=== PATIENT | male | born 1980 | race Two or more races ===

== ENCOUNTER 2022-10-24 13:00 | Inpatient (IN) | payer MEDICAID, OTHER ==
[~2022-10-24] VITALS: Ht 180.3 cm; Wt 209.0 kg
[2022-10-24 13:30] LABS: Basophils # (auto) 0.1 10 ^3/uL (0-0.2); Basophils % (auto) 0.5 % (0.0-2.0); Eosinophils # (auto) 0.5 10 ^3/uL (0-0.8); Hematocrit 33.4 % (41.0-53.0); Mean Corpuscular Volume 79.8 fL (80.0-100.0); Monocytes # (auto) 0.7 10 ^3/uL (0-1.3); Nucleated Red Blood Cells % 0.1 %
[2022-10-24 13:32] LABS: Eosinophils % (auto) 3.1 % (0.0-7.0); Hemoglobin 9.9 g/dL (13.5-17.5); Lymphocytes # (auto) 1.6 10 ^3/uL (0.4-5.4); Lymphocytes % (auto) 9.8 % (10.0-50.0); Mean Corpuscular Hemoglobin 23.7 pg (28.0-32.0); Mean Corpuscular Hgb Conc. 29.6 g/dL (32.0-36.0); Monocytes % (auto) 4.3 % (0.0-12.0); Neutrophils # (auto) 13.2 10 ^3/uL (1.6-8.6); Neutrophils % (auto) 82.3 % (37.0-80.0); Red Blood Cells 4.18 10^6/uL (4.5-5.90); Red Cell Distribution Width 18.6 % (11.8-14.3)
[2022-10-24 13:46] LABS: INR 0.99 (0.9-1.15); Partial Thromboplastin Time 26.2 sec (24.6-33.4)
[2022-10-24 14:31] LABS: BUN/Creatinine Ratio 14.8; Potassium 3.5 mmol/L (3.5-5.1)
[2022-10-24 14:33] LABS: Albumin 3.3 g/dL (3.4-5.0); Bilirubin, Total 0.4 mg/dL (0.2-1.0); Calcium 8.7 mg/dL (8.5-10.1); Total Protein 7.7 g/dL (6.4-8.2)
[2022-10-24] MEDS ORDERED: ASPirin 325 MG TAB PO ONE (16:45)
[2022-10-24] MEDS ORDERED: SODIUM CHLORIDE 0.9% 1,000 ML IV ONE (17:15)
[2022-10-24] MEDS ORDERED: cefTRIAXone 1GM/50ML D5W 50 ML IV ONE (17:15)
[2022-10-24] MEDS ORDERED: AZITHROMYCIN 500MG/ 250ML 250 ML IV ONE (17:15)
[2022-10-24] MEDS ORDERED: ACETAMINOPHEN 325 MG TAB PO ONE (17:15)
[2022-10-24] MEDS ORDERED: DexAMETHasone SOD PHOS 10MG/1ML VIAL INJ IV ONE (17:30)
[2022-10-24] MEDS ORDERED: LORazepam 0.5 MG TAB PO PRN (19:30)
[2022-10-24] MEDS ORDERED: ACETAMINOPHEN 325 MG TAB PO PRN (19:30)
[2022-10-24] MEDS ORDERED: ZOLPIDEM TARTRATE 5 MG TAB PO PRN (19:30)
[2022-10-24] MEDS ORDERED: ONDANSETRON HCL 4 MG/2 ML VIAL IV PRN (19:30)
[2022-10-24] MEDS ORDERED: NITROGLYCERIN 0.4 MG SL TAB SL PRN (19:30)
[2022-10-24] MEDS ORDERED: MORPHINE SULFATE 4 MG/ML SYR/VIAL IV PRN (19:30)
[2022-10-24] MEDS ORDERED: IODIXANOL 320MG/ML 100ML BTL IV ONE (20:15)
[2022-10-24] MEDS: SODIUM CHLORIDE 0.9% 1,000 ML IV SCH (20:23)
[2022-10-24] MEDS ORDERED: DEXTROSE (50%) 50ML SYRG IV PRN (21:15)
[2022-10-24 21:27] LABS: Urine Bacteria NONE SEEN /hpf (None Seen); Urine Blood 2+ /uL (Negative); Urine Specific Gravity 1.011 (1.001-1.035); Urine WBC 79 /hpf (0 - 3)
[2022-10-24] MEDS: ENOXAPARIN SOD 150 MG/1 ML SYRINGE SC SCH (22:06)
[2022-10-24] MEDS: METOPROLOL TARTRATE 25 MG TAB PO SCH (22:06)
[2022-10-24] MEDS: ATORVASTATIN 20 MG TAB PO SCH (22:16)
[2022-10-25] MEDS: InsuLIN REG 1unit/0.01ml Soln (100units/ml) SC SCH ×6 (00:48→20:00)
[2022-10-25] MEDS: ACCU-CHEK COMFORT CURVE STRIP VI SCH ×6 (04:02→20:25)
[2022-10-25 06:24] LABS: Basophils # (auto) 0 10 ^3/uL (0-0.2); Basophils % (auto) 0.1 % (0.0-2.0); Eosinophils # (auto) 0 10 ^3/uL (0-0.8); Hematocrit 30.3 % (41.0-53.0); Hemoglobin 9.4 g/dL (13.5-17.5); Lymphocytes # (auto) 0.5 10 ^3/uL (0.4-5.4); Lymphocytes % (auto) 3.6 % (10.0-50.0); Mean Corpuscular Hemoglobin 23.5 pg (28.0-32.0); Mean Corpuscular Hgb Conc. 30.9 g/dL (32.0-36.0); Mean Corpuscular Volume 75.9 fL (80.0-100.0); Monocytes # (auto) 0.2 10 ^3/uL (0-1.3); Monocytes % (auto) 1.5 % (0.0-12.0); Neutrophils # (auto) 13.3 10 ^3/uL (1.6-8.6); Neutrophils % (auto) 94.8 % (37.0-80.0); Red Blood Cells 3.99 10^6/uL (4.5-5.90); Red Cell Distribution Width 18.4 % (11.8-14.3)
[2022-10-25 06:41] LABS: BUN/Creatinine Ratio 14.7; Calcium 8.8 mg/dL (8.5-10.1); Potassium 3.7 mmol/L (3.5-5.1)
[2022-10-25] MEDS: SODIUM CHLORIDE 0.9% 1,000 ML IV SCH ×2 (08:50→22:20)
[2022-10-25] MEDS ORDERED: cefTRIAXone 1GM/50ML D5W 50 ML IV SCH (10:00)
[2022-10-25] MEDS: LISINOPRIL 5 MG TAB PO SCH (10:32)
[2022-10-25] MEDS: CLOPIDOGREL BISULFATE 75 MG TAB PO SCH (10:33)
[2022-10-25] MEDS: ASPirin 81 mg TAB PO SCH (10:34)
[2022-10-25] MEDS: METOPROLOL TARTRATE 25 MG TAB PO SCH ×2 (10:34→21:38)
[2022-10-25] MEDS: DOCUSATE SOD 100 MG CAP PO SCH (10:34)
[2022-10-25] MEDS: AZITHROMYCIN 500MG/ 250ML 250 ML IV SCH ×2 (10:35→11:43)
[2022-10-25] MEDS: ENOXAPARIN SOD 150 MG/1 ML SYRINGE SC SCH ×2 (10:35→21:38)
[2022-10-25 11:20] LABS: Cholesterol 134 mg/dL (< 200); HDL Cholesterol 40 mg/dL (40-59); LDL Cholesterol 84 mg/dL (< 100); Triglycerides 106 mg/dL (< 150)
[2022-10-25] MEDS: cefTRIAXone 1GM/50ML D5W 50 ML IV SCH (15:00)
[2022-10-25] MEDS ORDERED: OXYMETAZOLINE HCL 0.05 % NASAL SPRAY 15ML ONE (17:44)
[2022-10-25] MEDS ORDERED: OXYMETAZOLINE HCL 0.05 % NASAL SPRAY 15ML EACHNOSTRI ONE (17:45)
[2022-10-25] MEDS: ATORVASTATIN 20 MG TAB PO SCH (21:37)
[2022-10-25 23:58] VITALS: BP 151/92
[2022-10-26] MEDS: ACCU-CHEK COMFORT CURVE STRIP VI SCH ×7 (00:24→23:10)
[2022-10-26 02:38] VITALS: BP 151/76
[2022-10-26] MEDS: InsuLIN REG 1unit/0.01ml Soln (100units/ml) SC SCH ×7 (04:00→23:10)
[2022-10-26 04:46] VITALS: BP 139/83
[2022-10-26 06:18] LABS: INR 1.07 (0.9-1.15)
[2022-10-26 06:20] LABS: Basophils # (auto) 0.1 10 ^3/uL (0-0.2); Basophils % (auto) 0.5 % (0.0-2.0); Eosinophils # (auto) 0.1 10 ^3/uL (0-0.8); Eosinophils % (auto) 0.9 % (0.0-7.0); Hematocrit 28.6 % (41.0-53.0); Hemoglobin 8.9 g/dL (13.5-17.5); Lymphocytes # (auto) 1.8 10 ^3/uL (0.4-5.4); Lymphocytes % (auto) 12.3 % (10.0-50.0); Mean Corpuscular Hemoglobin 23.6 pg (28.0-32.0); Mean Corpuscular Volume 75.9 fL (80.0-100.0); Monocytes % (auto) 6.9 % (0.0-12.0); Neutrophils # (auto) 11.9 10 ^3/uL (1.6-8.6); Neutrophils % (auto) 79.4 % (37.0-80.0); Nucleated Red Blood Cells % 0.1 %; Red Blood Cells 3.77 10^6/uL (4.5-5.90); Red Cell Distribution Width 18.4 % (11.8-14.3); White Blood Cell 14.9 10^3/uL (4.4-10.8)
[2022-10-26 06:23] LABS: BUN/Creatinine Ratio 16.5; Calcium 8.6 mg/dL (8.5-10.1); Potassium 3.6 mmol/L (3.5-5.1)
[2022-10-26] MEDS ORDERED: GLIP5TAB12 PO (07:41)
[2022-10-26] MEDS ORDERED: METO-289 PO (07:41)
[2022-10-26] MEDS ORDERED: ALLO300T2 PO (07:41)
[2022-10-26] MEDS: AZITHROMYCIN 500MG/ 250ML 250 ML IV SCH (08:35)
[2022-10-26] MEDS: cefTRIAXone 1GM/50ML D5W 50 ML IV SCH (08:36)
[2022-10-26] MEDS: LISINOPRIL 5 MG TAB PO SCH (08:36)
[2022-10-26] MEDS: METOPROLOL TARTRATE 25 MG TAB PO SCH ×2 (08:36→21:28)
[2022-10-26] MEDS: DOCUSATE SOD 100 MG CAP PO SCH (08:37)
[2022-10-26] MEDS: ENOXAPARIN SOD 150 MG/1 ML SYRINGE SC SCH ×2 (08:37→21:28)
[2022-10-26 09:00] VITALS: BP 121/82
[2022-10-26] MEDS: CLOPIDOGREL BISULFATE 75 MG TAB PO SCH (10:00)
[2022-10-26] MEDS: ASPirin 81 mg TAB PO SCH (10:00)
[2022-10-26] MEDS: SODIUM CHLORIDE 0.9% 1,000 ML IV SCH ×2 (11:30→23:53)
[2022-10-26 13:00] VITALS: BP 128/84
[2022-10-26 17:00] VITALS: BP 131/85
[2022-10-26] MEDS: ATORVASTATIN 20 MG TAB PO SCH (21:28)
[2022-10-26 22:00] VITALS: BP 137/81
[2022-10-27] MEDS: ACCU-CHEK COMFORT CURVE STRIP VI SCH ×5 (03:50→20:17)
[2022-10-27] MEDS: InsuLIN REG 1unit/0.01ml Soln (100units/ml) SC SCH ×5 (03:50→20:00)
[2022-10-27 05:00] VITALS: BP 137/78
[2022-10-27] MEDS: LISINOPRIL 5 MG TAB PO SCH (08:44)
[2022-10-27] MEDS: METOPROLOL TARTRATE 25 MG TAB PO SCH ×2 (08:45→22:16)
[2022-10-27] MEDS: AZITHROMYCIN 500MG/ 250ML 250 ML IV SCH (08:45)
[2022-10-27] MEDS: cefTRIAXone 1GM/50ML D5W 50 ML IV SCH (08:45)
[2022-10-27] MEDS: ENOXAPARIN SOD 150 MG/1 ML SYRINGE SC SCH ×2 (08:46→22:15)
[2022-10-27 09:06] VITALS: BP 171/89
[2022-10-27] MEDS: ASPirin 81 mg TAB PO SCH (10:00)
[2022-10-27] MEDS: CLOPIDOGREL BISULFATE 75 MG TAB PO SCH (10:00)
[2022-10-27] MEDS: DOCUSATE SOD 100 MG CAP PO SCH (10:00)
[2022-10-27 13:00] VITALS: BP 131/20
[2022-10-27] MEDS ORDERED: APIX5TAB4 PO (14:47)
[2022-10-27] MEDS ORDERED: AMOX-277 PO (14:51)
[2022-10-27 17:00] VITALS: BP 137/69
[2022-10-27 22:00] VITALS: BP 147/93
[2022-10-27] MEDS: ATORVASTATIN 20 MG TAB PO SCH (22:16)
[2022-10-28] MEDS: ACCU-CHEK COMFORT CURVE STRIP VI SCH ×4 (00:12→12:53)
[2022-10-28] MEDS: InsuLIN REG 1unit/0.01ml Soln (100units/ml) SC SCH ×4 (04:00→12:53)
[2022-10-28 05:00] VITALS: BP 142/85
[2022-10-28 08:30] VITALS: BP 151/82
[2022-10-28] MEDS: LISINOPRIL 5 MG TAB PO SCH (09:32)
[2022-10-28] MEDS: ENOXAPARIN SOD 150 MG/1 ML SYRINGE SC SCH (09:33)
[2022-10-28] MEDS: METOPROLOL TARTRATE 25 MG TAB PO SCH (09:33)
[2022-10-28 12:40] VITALS: BP 151/82
== END 2022-10-28 13:50 | disposition home or self-care (01) | DRG 190 ==
LOC: ER 13:00 → TELE 19:27 → TELE-CENTR 10-25 23:18
PROVIDERS: ADMIT Hospitalist; ATTEND Student in an Organized Health Care Education/Training Program
DX: I21.4 Non-ST elevation (NSTEMI) myocardial infarction (principal); I26.99 Other pulmonary embolism without acute cor pulmonale; D63.1 Anemia in chronic kidney disease; K57.92 Diverticulitis of intestine, part unspecified, without perforation or abscess without bleeding; Z68.44 Body mass index [BMI] 60.0-69.9, adult; E11.22 Type 2 diabetes mellitus with diabetic chronic kidney disease; N18.4 Chronic kidney disease, stage 4 (severe); I12.9 Hypertensive chronic kidney disease with stage 1 through stage 4 chronic kidney disease, or unspecified chronic kidney disease; E66.01 Morbid (severe) obesity due to excess calories; G47.33 Obstructive sleep apnea (adult) (pediatric); Z20.822 Contact with and (suspected) exposure to COVID-19; M10.9 Gout, unspecified; F32.A Depression, unspecified; Z90.49 Acquired absence of other specified parts of digestive tract; F41.9 Anxiety disorder, unspecified; Z79.84 Long term (current) use of oral hypoglycemic drugs
CPT/HCPCS: 36415; 36600; 71045; 78582; 80048; 80053; 80061; 81001; 82805; 82962; 83036; 83605; 83690; 83880; 84443; 84484; 85025; 85379; 85610; 85730; 87040; 87086; 87426; 87804; 93005; 93306; 93970; 96365; 96368; 96375; 99291; G0378; J0696; J1100; J1815; Q9967